=== PATIENT | female | born 1955 | race African-American/Black ===

== ENCOUNTER 2021-09-10 01:39 | Inpatient (IN) | payer BC ==
[~2021-09-10] VITALS: Ht 167.6 cm; Wt 78.0 kg
[2021-09-10] MEDS ORDERED: SODIUM CHLORIDE 0.9% 1,000 ML IV ONE (02:00)
[2021-09-10 02:19] LABS: HEMATOCRIT. 36.9 % (36.0-48.0); HEMOGLOBIN. 12.4 g/dL (12.0-16.0); MEAN CORPUSCULAR HEMOGLOBIN 28.5 pg (28.0-32.0); MEAN PLATELET VOLUME 6.2 fl (7.4-10.4); PLATELET 260 x1000/uL (130-400); RED BLOOD CELL COUNT 4.34 mill/uL (4.2-5.4)
[2021-09-10 02:22] LABS: CHLORIDE 104 mEq/L (98-107)
[2021-09-10 02:27] LABS: ETHANOL BLOOD < 10 mg/dL
[2021-09-10] MEDS ORDERED: LEVETIRACETAM 500MG PREMIX 100 ML IV ONE (02:30)
[2021-09-10] MEDS ORDERED: LORAZEPAM 2MG/ML CPJ IV ONE (02:30)
[2021-09-10 04:54] LABS: PLATELET ESTIMATE NORMAL
[2021-09-10] MEDS ORDERED: DOCUSATE SODIUM 100MG CAPSULE PO PRN (07:30)
[2021-09-10] MEDS ORDERED: CLONIDINE 0.1MG TABLET PO PRN (07:30)
[2021-09-10] MEDS ORDERED: NITROGLYCERIN 0.4MG TABLET SL SL PRN (07:30)
[2021-09-10] MEDS ORDERED: MAGNESIUM/ALUMINUM HYDROXIDE/SIMETHICONE 30ML UDC PO PRN (07:30)
[2021-09-10] MEDS ORDERED: IPRATROPIUM/ALBUTEROL 0.5-3(2.5)MG/3ML NEB NEB PRN (07:30)
[2021-09-10] MEDS ORDERED: KETOROLAC 15MG/ML VIAL IV PRN (07:30)
[2021-09-10] MEDS ORDERED: LORAZEPAM 2MG/ML CPJ IV PRN (07:30)
[2021-09-10] MEDS ORDERED: ONDANSETRON HCL 4MG/2ML INJ IV PRN (07:30)
[2021-09-10] MEDS ORDERED: ACETAMINOPHEN 325MG TABLET PO PRN ×2 (07:30)
[2021-09-10 08:00] VITALS: BP 136/70
[2021-09-10 08:30] LABS: FOLIC ACID (FOLATE) SERUM 16.6 ng/mL (>5.38)
[2021-09-10] MEDS: FAMOTIDINE 20MG TABLET PO SCH ×2 (09:13→21:15)
[2021-09-10] MEDS: ASPIRIN 325MG EC TABLET PO SCH (09:13)
[2021-09-10] MEDS: ENOXAPARIN 40MG/0.4ML SYR SUBCUT SCH (09:13)
[2021-09-10 09:35] VITALS: BP 136/70
[2021-09-10] MEDS ORDERED: METO-539 PO (11:19)
[2021-09-10] MEDS ORDERED: GABA-532 PO (11:19)
[2021-09-10] MEDS ORDERED: BENA40TA9 PO (11:19)
[2021-09-10] MEDS ORDERED: AMLO10TA80 PO (11:19)
[2021-09-10 12:00] VITALS: BP 137/89
[2021-09-10] MEDS ORDERED: LORAZEPAM 2MG/ML CPJ IV SCH (12:00)
[2021-09-10 13:48] LABS: CLARITY URINE CLEAR (CLEAR); COLOR URINE YELLOW (YELLOW); KETONES URINE NEGATIVE (NEGATIVE); LEUKOCYTE ESTERASE URINE 2+ (NEGATIVE); NITRITE URINE NEGATIVE (NEGATIVE); OCCULT BLOOD URINE TRACE (NEGATIVE); PROTEIN URINE NEGATIVE (NEGATIVE); SPECIFIC GRAVITY URINE 1.008 (1.005-1.030); UROBILINOGEN URINE 0.2 E.U./dL (0.2-1.0)
[2021-09-10 14:08] LABS: METHADONE URINE SCREEN NEGATIVE (NEGATIVE)
[2021-09-10 14:09] LABS: *AMPHETAMINES SCREEN URINE NEGATIVE (NEGATIVE); *BARBITURATES SCREEN URINE NEGATIVE (NEGATIVE); *BENZODIAZEPINES SCREEN URINE NEGATIVE (NEGATIVE); *COCAINE SCREEN URINE NEGATIVE (NEGATIVE); CANNABINOID URINE SCREEN NEGATIVE (NEGATIVE); OPIATES URINE SCREEN NEGATIVE (NEGATIVE); PHENCYCLIDINE URINE SCREEN NEGATIVE (NEGATIVE)
[2021-09-10 16:00] VITALS: BP 118/53
[2021-09-10] MEDS: GUAIFENESIN 200MG/10ML SUGAR FREE UDC PO PRN ×2 (16:32→22:55)
[2021-09-10 18:16] LABS: CREATINE KINASE 95 IU/L (26-192)
[2021-09-10 18:17] LABS: CREATINE KINASE MB FRACTION 1.2 ng/mL (0.5-3.6)
[2021-09-10 20:00] VITALS: BP 123/51
[2021-09-10] MEDS ORDERED: ZOLPIDEM TARTRATE 5MG TABLET PO PRN (21:00)
[2021-09-10 23:52] LABS: CREATINE KINASE 82 IU/L (26-192)
[2021-09-10 23:54] LABS: CREATINE KINASE MB FRACTION 1.6 ng/mL (0.5-3.6)
[2021-09-11] VITALS: BP 127/58
[2021-09-11 04:00] VITALS: BP 120/60
[2021-09-11 06:11] LABS: BASOPHILS % 0.9 % (0.0-2.0); EOSINOPHILS % 0.5 % (0.0-5.0); HEMATOCRIT. 35.2 % (36.0-48.0); HEMOGLOBIN. 11.6 g/dL (12.0-16.0); LYMPHOCYTES % 29.1 % (20.0-50.0); MEAN CORPUSCULAR VOLUME 84.8 fL (81.0-99.0); MEAN PLATELET VOLUME 6.2 fl (7.4-10.4); NEUTROPHILS % 58.5 % (40.0-76.0); PLATELET 238 x1000/uL (130-400); RED BLOOD CELL COUNT 4.16 mill/uL (4.2-5.4); RED CELL DISTRIBUTION WIDTH 20.4 % (11.6-14.6)
[2021-09-11 06:39] LABS: CHLORIDE 110 mEq/L (98-107)
[2021-09-11 06:45] LABS: PHOSPHORUS 2.8 mg/dL (2.5-4.9)
[2021-09-11 08:00] VITALS: BP 135/66
[2021-09-11] MEDS: ASPIRIN 325MG EC TABLET PO SCH (09:04)
[2021-09-11] MEDS: ENOXAPARIN 40MG/0.4ML SYR SUBCUT SCH (09:04)
[2021-09-11] MEDS: FAMOTIDINE 20MG TABLET PO SCH (09:05)
[2021-09-11 10:49] VITALS: BP 135/66
== END 2021-09-11 12:00 | disposition home or self-care (01) | DRG 72 ==
LOC: ER 01:39 → 6WST 04:35 → ENRESERV 05:25
PROVIDERS: ADMIT Internal Medicine; ATTEND Internal Medicine
DX: G93.40 Encephalopathy, unspecified (principal); F41.0 Panic disorder [episodic paroxysmal anxiety]; I10 Essential (primary) hypertension; R56.9 Unspecified convulsions; M54.30 Sciatica, unspecified side; E86.0 Dehydration; Z53.29 Procedure and treatment not carried out because of patient's decision for other reasons; Z90.710 Acquired absence of both cervix and uterus; Z20.822 Contact with and (suspected) exposure to COVID-19; Z88.0 Allergy status to penicillin
CPT/HCPCS: 36415; 70551; 71045; 80053; 80061; 80305; 80320; 81003; 82550; 82553; 82607; 82746; 83036; 83540; 83550; 83605; 83735; 84100; 84443; 84484; 85025; 87077; 87186; 87426; 93005; 93970; 99291; J1650; J1885; J1953; J2060; J7030; G0480